=== PATIENT | male | born 1980 | race Caucasian/White ===

== ENCOUNTER 2020-05-11 15:50 | Emergency (ER) | payer OTHER, SELFPAY ==
[2020-05-11 16:04] VITALS: BP 157/98; PULSE 85; RESP 16; TEMP 37; O2SAT 96; BMI 29.6
--- NOTE | 2020-05-11 16:09 | DI.RAD.S_ITS ---
PROCEDURE: XR FOOT RT MIN 3V INDICATIONS: deformed 5th digit TECHNIQUE: 3 views of the foot were acquired. COMPARISON: None. FINDINGS: Bones: There is oblique fracture involving distal shaft of 5th proximal phalanx with dorsal and lateral displacement at fracture site. No definite dislocation. No other fracture is seen. Soft tissues: No tibiotalar joint effusion. Achilles tendon appears normal. IMPRESSION: Acute displaced 5th proximal phalangeal shaft fracture as above. Dictated by: Basilio Laureano M.D. on 05/11/2020 at 15:25 Approved by: Basilio Laureano M.D. on 05/11/2020 at 15:26
[2020-05-11] MEDS: LIDO 1%/SOD BICARB 8.4% (10ML) 10 ML SYRINGE INJ (17:00)
--- NOTE | 2020-05-11 17:35 | ED_ITS ---
HPI - Extremity Injury (Lower) <LAUREN Jeronimo - Last Filed: 05/11/20 22:51> General Chief Complaint: Extremity Injury, Lower Stated Complaint: rt 5th toe injury Time Seen by Provider: 05/11/20 16:33 Source: patient Mode of arrival: Ambulatory Limitations: no limitations History of Present Illness HPI Narrative: This is a 39-year-old male, nonsmoker, who presents to ED with chief complain of right little toes pain and deformity. Patient reports he was playing a tag with his little nephew and the affected toe got hooked on a table leg this afternoon. Since the injury, the affected toe has been deviated laterally. Patient reports intact sensation and mild swelling. He is able to bear weight with slight discomfort and pain increased with movement on affected toe. Reports difficulty moving affected toe. Related Data Allergies Allergy/AdvReac Type Severity Reaction Status Date / Time Sulfa (Sulfonamide Allergy Verified 05/11/20 17:01 Antibiotics) Review of Systems <LAUREN Jeronimo - Last Filed: 05/11/20 22:51> Review of Systems Narrative: General: Denies fever, chills, fatigue, malaise, sweats. HEENT: Denies sinus pain, ear pain, sore throat, difficulty swallowing, dizziness. Respiratory: Denies dyspnea, cough, wheezing, hemoptysis, sputum. Cardiovascular: Denies chest pain, palpitations, orthopnea, edema. Musculoskeletal: See HPI Skin: Denies rash, skin lesions, or open injury. Patient History <LAUREN Jeronimo - Last Filed: 05/11/20 22:51> Medical History (Updated 05/11/20 @ 22:30 by LAUREN Jeronimo) No significant past medical history (Acute) Surgical History (Updated 05/11/20 @ 22:30 by LAUREN Jeronimo) No pertinent past surgical history (Acute) Substance Use Type: marijuana Exam <LAUREN Jeronimo Last Filed: 05/11/20 22:51> Narrative Exam Narrative: General appearance: well developed, well nourished, in no acute distress. Head: normocephalic, atraumatic, no scalp lesions, non-tender. ENT: Hearing grossly intact. Airway patent. Neck/Thyroid: neck supple, full range of motion, no visible masses or meningeal signs. No JVD, non-tender without lymphadenopathy. Skin: no suspicious rashes, lesions over visible areas. Warm and dry and appropriate color for ethnicity. Heart: no clubbing, no cyanosis, no edema. Lungs: Breathing even and unlabored. No stridor. No accessory muscles used. Able to speak in full sentences. Chest: normal shape and expansion. Abdomen: non-obese, non-distended. Neurologic: alert and oriented. Cognitive exam, NEWS REPORTER and PNS grossly intact on informal exam. Psych: good eye contact, normal affect. Initial Vital Signs Initial Vital Signs: Vital Signs Temperature 98.6 F 05/11/20 16:04 Pulse Rate 85 05/11/20 16:04 Respiratory Rate 16 05/11/20 16:04 Blood Pressure 157/98 H 05/11/20 16:04 Pulse Oximetry 96 05/11/20 16:04 Extrem Right lower extremity: foot Details: abnormal to inspection Details: erythematous and a deformity (laterally deviated little toe), tenderness Location: of another digit Location: the 5th digit, abnormal ROM of toe (decreased ROM) Details: pain with active ROM and pain with passive ROM, edema (mild swelling to little toe), ecchymosis, vascular exam Details: dorsalis pedis pulse present and normal capillary refill and motor-sensory exam Details: light- touch normal; no unusual warmth, no abrasion and no laceration <Pravin Trejo DO - Last Filed: 05/15/20 18:22> Initial Vital Signs Initial Vital Signs: Vital Signs Temperature 98.6 F 05/11/20 16:04 Pulse Rate 85 05/11/20 16:04 Respiratory Rate 16 05/11/20 16:04 Blood Pressure 157/98 H 05/11/20 16:04 Pulse Oximetry 96 05/11/20 16:04 Procedures <LAUREN Jeronimo - Last Filed: 05/11/20 22:51> Orthopedic Fracture Reduction Fracture #1: Time Out Performed: Yes Side: right Fracture Reduction Location: toe (Little toe) Analgesia: nerve block Technique: direct manipulation and traction/counter-traction Post Reduction X-rays Demonstrate: acceptable reduction Post-reduction neuro exam: intact Post-reduction vascular exam: intact Splint Applied: Yes (ely tape) Patient Tolerated Procedure: Well Additional Comments: Attempted reduction but unsuccessful. Dr. Trejo had close reduction of the affected toe and ely taped this before 2nd post reduction xray test obtained. Orthopedic Splinting/Casting Injury #1: Side: right Lower Extremity Injury Location: toe (little toe) Lower Extremity Immobilizer: post-op shoe and ely tape Post splinting neuro exam: intact Post splinting vascular exam: intact Placed by: Nursing Scores <LAUREN Jeronimo - Last Filed: 05/11/20 22:51> GCS Thiago coma scale eye opening: Spontaneous [place] coma scale verbal response: Orientated [place] coma scale motor response: Obey commands [place] coma scale total score: 15 Course <LAUREN Jeronimo - Last Filed: 05/11/20 22:51> Orders Ordered: Discontinued Medications Lidocaine/Sodium Bicarbonate (Buffered Lidocaine 10 Ml Syr) 10 ml INJ NOW ONE Stop: 05/11/20 16:34 Last Admin: 05/11/20 17:00 Dose: 10 ml Documented by: RADHA Lidocaine/Sodium Bicarbonate (Buffered Lidocaine 10 Ml Syr) 10 ml INJ NOW ONE Stop: 05/11/20 17:15 Consultations Consultation #1: Dr. Cam consulted after had closed reduction repeated x-ray and recommended ely tape and use orthoshoe and to follow-up with primary care physician or orthopedist. Time: 18:18 Vital Signs Vital signs: Vital Signs - 8 hr 05/11/20 16:04 05/11/20 18:30 Temperature 98.6 F Pulse Rate 85 88 Respiratory Rate 16 16 Blood Pressure 157/98 H Pulse Oximetry 96 98 <Pravin Trejo DO - Last Filed: 05/15/20 18:22> Orders Ordered: Discontinued Medications Lidocaine/Sodium Bicarbonate (Buffered Lidocaine 10 Ml Syr) 10 ml INJ NOW ONE Stop: 05/11/20 16:34 Last Admin: 05/11/20 17:00 Dose: 10 ml Documented by: RADHA Lidocaine/Sodium Bicarbonate (Buffered Lidocaine 10 Ml Syr) 10 ml INJ NOW ONE Stop: 05/11/20 17:15 Vital Signs Vital signs: Vital Signs - 8 hr 05/11/20 16:04 05/11/20 18:30 Temperature 98.6 F Pulse Rate 85 88 Respiratory Rate 16 16 Blood Pressure 157/98 H Pulse Oximetry 96 98 MDM - Extremity Injury (Lower) <LAUREN Jeronimo - Last Filed: 05/11/20 22:51> Differential Diagnosis Differential diagnosis: Likely fracture of toe and other (toe dislocation) Medical Records Attestation: I reviewed the patient's medical records. Imaging Data XR-Foot RT: Radiologist's Impression: [address] [address] XRay Report Signed Patient: Sai Rod WMR#: [id number] : 1980Acct:[id number] Age/Sex: 39 / MDate of Service: 05/11/20 Loc: ED Accession Number: [id number] Procedure: XR foot RT min 3V Ordering Provider: Pravin Trejo D.O. PROCEDURE: XR FOOT RT MIN 3V INDICATIONS: deformed 5th digit TECHNIQUE: 3 views of the foot were acquired. COMPARISON: None. FINDINGS: Bones: There is oblique fracture involving distal shaft of 5th proximal phalanx with dorsal and lateral displacement at fracture site. No definite dislocation. No other fracture is seen. Soft tissues: No tibiotalar joint effusion. Achilles tendon appears normal. IMPRESSION: Acute displaced 5th proximal phalangeal shaft fracture as above. Dictated by: Basilio Laureano M.D. on 05/11/2020 at 15:25 Approved by: Basilio Laureano M.D. on 05/11/2020 at 15:26 XR-Foot RT #2 post reduction: Radiologist's Impression: [address] [address] XRay Report Signed Patient: Sai Rod WMR#: [id number] : 1980Acct:[id number] Age/Sex: 39 / MDate of Service: 05/11/20 Loc: ED Accession Number: [id number] Procedure: XR foot RT min 3V Ordering Provider: Bubba Wooten PROCEDURE: XR FOOT RT MIN 3V INDICATIONS: post reduction TECHNIQUE: 3 views of the foot were acquired. COMPARISON: [facility], XR FOOT RT MIN 3V, 05/11/2020, 16:14. FINDINGS: Bones: There is interval reduction of previously noted oblique fracture through distal shaft of 5th proximal phalanx with improved alignment. No new fracture or dislocation.. No suspicious bony lesions. Soft tissues: No tibiotalar joint effusion. Achilles tendon appears normal. IMPRESSION: Interval reduction of earlier noted 5th proximal phalangeal shaft fracture with improved alignment. Dictated by: Basilio Laureano M.D. on 05/11/2020 at 17:05 Approved by: Basilio Laureano M.D. on 05/11/2020 at 17:[address] [facility] Narrative Medical decision making narrative: This is a 39 year old male who presented to ED with pain in mis-alignment of right little toe after the affected foot got hooked on a table leg. Initial xray on right foot indicates oblique, displaced 5th proximal phalangeal shaft fracture with dorsal and lateral displacement. Closed reduction done by myself, which was unsuccessful, and also Dr. Trejo. Post reduction Xray obtained and it indicates improved alignment without new fracture or dislocation. Affected toe was remained in a ely tape and ortho shoe provided. Dr. Cam consulted. Patient advised to use ely-taped for next 4-6 weeks and it's okay to ambulate on heel and not to put pressure on forefoot. Advised to follow up with primary care physician or orthopedist and return precautions were discussed with patient. The patient advised to be cautious not to compromise circulation when applying ely tape along RICE therapy and to take OTC Tylenol/Motrin PRN. Patient verbalized understanding in agreement with treatment plan. Discharge Plan Departure Patient Disposition: Home Clinical Impression: Closed fracture of toe Qualifiers: Encounter type: initial encounter Toe: lesser toe Phalanx: proximal Fracture alignment: displaced Laterality: right Qualified Code(s): S92.511A - Displaced fracture of proximal phalanx of right lesser toe(s), initial encounter for closed fracture Discharge Date/Time: 05/11/20 18:55 Instructions: DI for Toe Fracture Activity Restrictions/Additional Instructions: You have been diagnosed with [right little toe fracture phalangeal shaft fracture which has been reduced and ely-taped.]. What to do: *Take your medications as directed. You can take [id number] Tylenol and or Motrin as needed for discomfort. Tylenol 650-1000 mg up to 3 to 4 times a day as needed. Ibuprofen 600 mg up to 3 to 4 times a day as needed for pain and please take it with food to decrease GI irritation. Elevate affected foot and use cool pack several times a day for 30 minutes for next couple of days. Keep using ely-tape on affected toes to stabilize the fracture for next 4-6 weeks. Use hard-soled shoes to help stabilizing the fracture. *Follow up with your primary care provider in 2-3 days, call for an appointment. Let them know you were seen in the ED and that we asked you to be seen in follow up. *Return to ED if you have any new, worsening, or concerning symptoms, such as [chest pain, breathing difficulty, unable to tolerate fluids, increasing pain/numbness/tingling/delayed circulation or any acute concerns]. Referrals: [facility] [Provider Group] Evelyn Aguilar MD [Physician] - <Pravin Trejo DO - Last Filed: 05/15/20 18:22> Cosign ED Attending Cosignature Attestation: Dr Trejo Co-Sign Statement: I was available for consultation during this patient's emergency department visit. This chart is signed by myself for administrative purposes only. I did not have direct contact with this patient during this visit. They were seen independe ntly by the APC.
--- NOTE | 2020-05-11 17:38 | DI.RAD.S_ITS ---
PROCEDURE: XR FOOT RT MIN 3V INDICATIONS: post reduction TECHNIQUE: 3 views of the foot were acquired. COMPARISON: [facility], CR, XR FOOT RT MIN 3V, 05/11/2020, 16:14. FINDINGS: Bones: There is interval reduction of previously noted oblique fracture through distal shaft of 5th proximal phalanx with improved alignment. No new fracture or dislocation.. No suspicious bony lesions. Soft tissues: No tibiotalar joint effusion. Achilles tendon appears normal. IMPRESSION: Interval reduction of earlier noted 5th proximal phalangeal shaft fracture with improved alignment. Dictated by: Basilio Laureano M.D. on 05/11/2020 at 17:05 Approved by: Basilio Laureano M.D. on 05/11/2020 at 17:07
[2020-05-11 18:30] VITALS: PULSE 88; RESP 16; O2SAT 98
== END 2020-05-11 18:55 | disposition home or self-care (01) ==
PROVIDERS: Emergency Provider Nurse Practitioner Family; PCP Physician Assistant
DX: S92.511A Displaced fracture of proximal phalanx of right lesser toe(s), initial encounter for closed fracture (principal); W22.03XA Walked into furniture, initial encounter
CPT/HCPCS: 28515; 64450; 73630; 99283

== ENCOUNTER 2020-07-15 19:31 | Emergency (ER) | payer OTHER, SELFPAY ==
[2020-07-15] VITALS (12 sets, daily range): BP systolic 135–183; BP diastolic 85–100; PULSE 78–114; RESP 14–28; TEMP 36.3; O2SAT 91–99; BMI 29.6
[2020-07-15] MEDS: predniSONE 20 MG TABLET 60 MG PO (19:42)
[2020-07-15] MEDS: ALBUTEROL/IPRATROPIUM MDI 2 PUFF INH (19:47)
--- NOTE | 2020-07-15 20:06 | DI.RAD.S_ITS ---
PROCEDURE: XR CHEST 2V INDICATIONS: difficulty breathing TECHNIQUE: 2 views of the chest were acquired. COMPARISON: None. FINDINGS: Surgical changes and devices: None. Lungs and pleura: Mild interstitial prominence most pronounced in the lung bases. No pleural effusions or pneumothorax. Mediastinum: Mediastinal contours are normal. Heart size is normal. Bones and chest wall: No suspicious bony abnormalities. Soft tissues appear unremarkable. IMPRESSION: Mild interstitial prominence concerning for pulmonary edema or atypical pneumonia. Dictated by: Flora Alcala MD, PhD on 07/15/2020 at 20:32 Approved by: Flora Alcala MD, PhD on 07/15/2020 at 20:32
[2020-07-15 20:15] LABS: COVID19 -Nasal RAPID Negative (Negative)
--- NOTE | 2020-07-15 20:16 | PC.NURSE ---
Pt reports breathing much improved after inhaler. Now sitting back in bed, breathing non labored.
[2020-07-15] MEDS: ALBUTEROL 2.5 MG/3 ML NEB (ADULT) 20 MG INH (21:16)
[2020-07-15] MEDS: IPRATROPIUM 0.5 MG/2.5 ML NEB 1.5 MG INH (21:16)
--- NOTE | 2020-07-15 21:25 | ED.ASTHMA ---
HPI - Asthma General Chief Complaint: Asthma Stated Complaint: asthma attack Time Seen by Provider: 07/15/20 19:32 Source: patient and family Mode of arrival: Wheelchair Limitations: no limitations History of Present Illness HPI Narrative: 39-year-old male nonsmoker with history of asthma presents with significant shortness of breath and wheezing that started about 20 minutes prior to his arrival. He was exposed to both caths and smoke, both known triggers, and could not find his puffer at home. He is not dizzy nor weak or lightheaded. He denies any fever or chills. He denies nausea, vomiting or diarrhea. He has never been hospitalized for his asthma, he denies any prior intubations. MD complaint: asthma attack and shortness of breath Onset (ago): minute(s) Severity: severe Context: ran out of meds and allergen exposure Associated symptoms: dry cough Related Data Current Asthma Therapy: inhaled bronchodilator Previous Rx's Medication Instructions Recorded prednisone 20 mg PO BID 4 Days #8 tab 07/15/20 prednisone 20 mg PO DAILY #5 tab 07/15/20 Allergies Allergy/AdvReac Type Severity Reaction Status Date / Time Sulfa (Sulfonamide Allergy Verified 05/11/20 17:01 Antibiotics) Review of Systems Constitutional Constitutional: Denies chills, Denies fatigue, Denies fever(s), Denies frequent falls, Denies lethargy and Denies weakness Eyes Eyes: Denies change in vision, Denies eye discharge, Denies irritation and Denies loss of vision ENT Ears, Nose, Mouth, and Throat: Denies change in voice, Denies dizziness, Denies neck pain, Denies sore throat and Denies throat swelling Cardiovascular Cardiovascular: Denies chest pain, Denies irregular heart rhythm, Denies lightheadedness, Denies palpitations, Reports dyspnea, Denies dyspnea on exertion and Denies orthopnea Respiratory Respiratory: Reports cough, Reports dyspnea, Denies dyspnea on exertion and Reports wheezing Gastrointestinal Gastrointestinal: Denies abdominal pain, Denies change in bowel habits, Denies diarrhea, Denies nausea and Denies vomiting Musculoskeletal Musculoskeletal: Denies neck pain and Denies numbness Integumentary/Breasts Skin/Breast: Denies pruritus, Denies erythema, Denies rash and Denies wounds Neurologic Neurologic: Denies behavioral changes, Denies confusion, Denies dizziness, Denies frequent falls, Denies loss of vision, Denies numbness and Denies weakness Psychiatric Psychiatric: Denies anxiety, Denies behavioral changes, Denies confusion, Denies depression, Denies homicidal ideation and Denies suicidal ideation Endocrine Endocrine: Denies fatigue, Denies flushing and Denies palpitations Hematologic/Lymphatic Hematologic/Lymphatic: Denies easy bruising Allergic/Immunologic Allergic/Immunologic: Denies urticaria, Denies throat swelling and Reports wheezing Patient History Medical History No significant past medical history Surgical History No pertinent past surgical history Social History Smoking Status: Never smoker Smoking Status: Never smoker alcohol intake frequency: a few times a week Substance Use Type: marijuana Exam Narrative Exam Narrative: GENERAL: [39] year old patient appears stated age. Well-nourished, well-developed patient, in obvious respiratory distress, sitting upright, rapid, shallow breathing. HEAD: Atraumatic. Normocephalic. EYES: Pupils equal round and reactive. Extraocular motions intact. No scleral icterus. No injection or drainage. ENT: Nose without bleeding, purulent drainage. Throat without erythema, tonsillar hypertrophy or exudate. Airway patent. NECK: Trachea midline. Non tender CARDIOVASCULAR: Regular rate and rhythm without murmurs, gallops, or rubs. RESPIRATORY: Decreased lung sounds throughout, rapid, shallow breathing GASTROINTESTINAL: Abdomen soft, non-tender, nondistended. EXTREMITIES: No edema or joint tenderness. BACK: Nontender without deformity or crepitance. No flank tenderness. NEURO: AOx3. SKIN: No rash or erythema of visible areas Initial Vital Signs Initial Vital Signs: Vital Signs Temperature 97.3 F L 07/15/20 19:40 Pulse Rate 114 H 07/15/20 19:40 Respiratory Rate 28 H 07/15/20 19:40 Blood Pressure 183/100 H 07/15/20 19:40 Pulse Oximetry 93 07/15/20 19:40 Course Orders Ordered: ED Orders 07/15/20 19:35 COVID19 Stat 07/15/20 20:06 XR chest 2V Stat Discontinued Medications Albuterol (Albuterol 2.5 Mg/3 Ml Neb (Adult)) 20 mg INH NOW ONE Stop: 07/15/20 21:06 Last Admin: 07/15/20 21:16 Dose: 20 mg Documented by: MEETA Albuterol/Ipratropium (Albuterol/Ipratropium Mdi) 2 puff INH NOW ONE Stop: 07/15/20 19:38 Last Admin: 07/15/20 19:47 Dose: 2 puff Documented by: ROBYN Albuterol/Ipratropium (Ipratropium/Albuterol Prepack) 1 box MISC SEEINSTR ONE Stop: 07/15/20 19:45 Last Admin: 07/15/20 19:53 Dose: Not Given Documented by: CANDI Ipratropium [place] (Ipratropium 0.5 Mg/2.5 Ml Neb) 1.5 mg INH NOW ONE Stop: 07/15/20 21:07 Last Admin: 07/15/20 21:16 Dose: 1.5 mg Documented by: MEETA Prednisone (Prednisone 20 Mg Tablet) 60 mg PO NOW ONE Stop: 07/15/20 19:38 Last Admin: 07/15/20 19:42 Dose: 60 mg Documented by: ROBYN Reevaluation(s) Reevaluation #1: Significant improvement after Combivent. Patient switched to nebulizers want COVID returned Vital Signs Vital signs: Vital Signs - 8 hr 07/15/20 19:40 07/15/20 19:50 07/15/20 19:55 Temperature 97.3 F L Pulse Rate 114 H 102 H 103 H Respiratory Rate 28 H 20 Blood Pressure 183/100 H Pulse Oximetry 93 92 93 07/15/20 20:07 07/15/20 20:30 07/15/20 21:00 Temperature Pulse Rate 96 H 82 80 Respiratory Rate Blood Pressure 135/85 Pulse Oximetry 91 95 92 07/15/20 21:16 07/15/20 21:30 07/15/20 22:00 Temperature Pulse Rate 81 78 83 Respiratory Rate 15 Blood Pressure Pulse Oximetry 97 99 07/15/20 22:30 07/15/20 23:00 07/15/20 23:18 Temperature Pulse Rate 86 84 85 Respiratory Rate 14 Blood Pressure 142/93 H Pulse Oximetry 95 96 97 MDM - Asthma Lab Data Labs: Lab Results 07/15/20 Range/Units 19:35 SARS-CoV-2 (PCR) Negative (Negative) Discharge Plan Departure Patient Disposition: Home Clinical Impression: Asthma with acute exacerbation Qualifiers: Asthma severity: mild Asthma persistence: unspecified Qualified Code(s): J45.901 - Unspecified asthma with (acute) exacerbation Instructions: DI for Asthma -- Adult Activity Restrictions/Additional Instructions: *You have been diagnosed with [asthma exacerbation] *What to do: *Take medications as directed *Follow up with your primary care provider in 2-3 days, call for an appointment. Let them know you were seen in the Emergency Department and that we ask that you be seen in follow up *Return to ER if you should have any new, worsening or concerning symptoms Prescriptions: New prednisone 20 mg tablet 20 mg PO DAILY Qty: 5 RF: 0 prednisone 20 mg tablet 20 mg PO BID 4 Days Qty: 8 RF: 0
== END 2020-07-15 23:21 | disposition home or self-care (01) ==
PROVIDERS: Emergency Provider Emergency Medicine
DX: J45.901 Unspecified asthma with (acute) exacerbation (principal); Z20.822 Contact with and (suspected) exposure to COVID-19
CPT/HCPCS: 71046; 87635; 94640; 99283; C9803; J7613

== ENCOUNTER → 2020-10-01 14:31 | Outpatient (CLI) | payer OTHER, SELFPAY ==
[2020-10-01] MEDS: COVID-19 VACC #1, MRNA(MOD) 100 MCG/0.5 ML VIAL IM (14:38)
== END ==
PROVIDERS: Visit Provider Internal Medicine
DX: Z23 Encounter for immunization (principal)
CPT/HCPCS: 0011A; 91301

== ENCOUNTER → 2020-10-21 15:15 | Outpatient (CLI) | payer OTHER, SELFPAY ==
[2020-10-21 16:36] LABS: COVID19 -Nasal RAPID Negative (Negative)
== END ==
PROVIDERS: Referring Provider Internal Medicine; Visit Provider Internal Medicine
DX: Z20.822 Contact with and (suspected) exposure to COVID-19 (principal)
CPT/HCPCS: 87635; C9803

== ENCOUNTER → 2020-10-22 06:45 | Outpatient (CLI) | payer OTHER, SELFPAY ==
--- NOTE | 2020-10-27 11:12 | PM.PFT.1 ---
Pulmonary Function Test Referral & Results Date Patient Seen: 10/22/20 Requesting provider: Evelyn Aguilar Results: The spirometry demonstrates an FVC of 4.78 L which is 73% of predicted. The FEV1 was measured at 1.53 L which is 29% of predicted. The FEV1/FVC ratio was 32 which is 40% of predicted. Following the administration of bronchodilator there was a 123% improvement in FEV1 and a 572% improvement in FEF 25-75%. Lung volumes show an SVC of 6.65 which is 108% of predicted. The diffusing capacity was measured at 47.89 which is 114% of predicted. The maximum voluntary ventilation was reduced slightly Interpretation: This study demonstrates severe obstructive lung disease with evidence of significant benefit following bronchodilator
== END ==
PROVIDERS: PCP Student in an Organized Health Care Education/Training Program; Referring Provider Student in an Organized Health Care Education/Training Program; Visit Provider Student in an Organized Health Care Education/Training Program
DX: J45.40 Moderate persistent asthma, uncomplicated (principal)
CPT/HCPCS: 94060; 94726; 94729

== ENCOUNTER → 2020-10-29 14:57 | Outpatient (CLI) | payer OTHER, SELFPAY ==
[2020-10-29] MEDS: COVID-19 VACC #2, MRNA(MOD) 100 MCG/0.5 ML VIAL IM (15:10)
== END ==
PROVIDERS: PCP Student in an Organized Health Care Education/Training Program; Visit Provider Internal Medicine
DX: Z23 Encounter for immunization (principal)
CPT/HCPCS: 0012A; 91301

== ENCOUNTER → 2021-11-11 15:14 | Outpatient (CLI) | payer OTHER, SELFPAY ==
[2021-11-11 15:59] LABS: Influenza A - CEPHEID Flu A NEGATIVE (NEGATIVE); Influenza B - CEPHEID Flu B NEGATIVE (NEGATIVE)
[2021-11-11 16:19] LABS: COVID-19 CEPHEID PCR (VTM/NP) Negative (Negative)
== END ==
PROVIDERS: PCP Student in an Organized Health Care Education/Training Program; Visit Provider Physician Assistant
DX: J02.9 Acute pharyngitis, unspecified (principal)
CPT/HCPCS: 0240U; 87070